=== PATIENT | female | born 1940 | race Caucasian/White ===

== ENCOUNTER → 2021-04-10 10:09 | Outpatient (BNVA) | payer MEDICARE, BC, SELFPAY | PROVIDERS: PCP Radiology Neuroradiology; Visit Provider Specialist | DX: G30.9 Alzheimer's disease, unspecified (principal); F02.80 Dementia in other diseases classified elsewhere, unspecified severity, without behavioral disturbance, psychotic disturbance, mood disturbance, and anxiety; Z87.891 Personal history of nicotine dependence | CPT/HCPCS: 96116; 99205 ==

== ENCOUNTER 2021-04-17 14:56 | Outpatient (CLI) | payer MEDICARE, BC, SELFPAY ==
--- NOTE | 2021-04-17 15:30 | CT_ITS ---
WS: [id number] CT HEAD TECHNIQUE: Noncontrast CT of the head obtained from the skullbase to the vertex. CLINICAL INFORMATION: R41.3 - Other amnesia COMPARISON: None. DLP: 752.[address] scans at [facility] use at least one of these dose optimization techniques: automat ed exposure control; mA and/or kV adjustment per patient size (includes targeted exams where dose is matched to clinical indication); or iterative reconstruction. FINDINGS: No evidence of intracranial hemorrhage or mass effect. Ventricular system and basal cisterns are wisdom nt. Moderate to advanced small vessel changes with moderate parenchymal volume loss. No extra-axial f luid collections. No evidence of mass or mass effect. Normal patterson-white differentiation. Paranasal sinuses and mastoid air cells are well aerated. .Normal visualized soft tissues. CT/CT head wo con* [id number] IMPRESSION: 1. No evidence of intracranial hemorrhage or mass effect. 2. Moderate to advanced small vessel changes with moderate parenchymal volume loss. 3. No acute intracranial findings.
== END 2021-04-17 14:57 | disposition home or self-care (01) ==
LOC: RADWPI 15:06
PROVIDERS: PCP Radiology Neuroradiology; Visit Provider Specialist
DX: R41.3 Other amnesia (principal)
CPT/HCPCS: 70450

== ENCOUNTER 2021-09-18 13:07 | Outpatient (CLI) | payer MEDICARE, BC, SELFPAY ==
--- NOTE | 2021-09-18 13:30 | US_ITS ---
WS: [id number] INDICATION: Thyroid nodules TECHNIQUE: Ultrasound-guided FNA FINDINGS: Outside imaging was reviewed. Outside ultrasound June 30, 2021 and January 02, 2021 The procedure including risks benefits complications were discussed the patient agreed to proceed. Pa tient was prepped and draped in usual sterile fashion. After 1% lidocaine, using ultrasound guidance, 4 passes were made into the solid right thyroid nodule measuring 1.4 x 1.3 x 0.7 CM. Next the largest complex appearing left thyroid nodule with microcalcifications was selected measurin g 0.8 x 0.7 x 0.5 CM. This was somewhat difficult to access due to location just above the clavicle. Under ultrasound guidance, 4 passes were made using a 25-gauge needle with active aspiration. No imme diate complications. Patient remained in the ultrasound Suite 15 minutes postprocedure to assess for hematoma. Pathology was present for slide preparation. US/US biopsy/FNA thyroid [id number] IMPRESSION: Uncomplicated FNA of a right and left thyroid nodule.
== END 2021-09-18 13:08 | disposition home or self-care (01) ==
LOC: RAD 13:09
PROVIDERS: PCP Radiology Neuroradiology; Visit Provider Otolaryngology
DX: E04.1 Nontoxic single thyroid nodule (principal)
CPT/HCPCS: 10005; 10006; 88173; 88305